=== PATIENT | female | born 1985 | race African-American/Black ===

== ENCOUNTER 2018-02-14 06:19 | Emergency (ER) | payer OTHER ==
[~2018-02-14] VITALS: Ht 170.2 cm; Wt 70.0 kg
[2018-02-14 06:22] VITALS: BP 102/59
[2018-02-14] MEDS ORDERED: ALDACTONE 100M100 MG PO (06:34)
[2018-02-14 08:15] VITALS: PULSE 78
== END 2018-02-14 08:17 | disposition home or self-care (01) ==
LOC: COL.ER 06:19
DX: S13.4XXA Sprain of ligaments of cervical spine, initial encounter (principal); S40.012A Contusion of left shoulder, initial encounter; S80.02XA Contusion of left knee, initial encounter; W10.9XXA Fall (on) (from) unspecified stairs and steps, initial encounter